=== PATIENT | female | born 1990 | race Hispanic/Latino ===

== ENCOUNTER 2017-12-17 13:47 | Inpatient (IN) | payer MEDICAID, SELFPAY ==
[~2017-12-17] VITALS: Ht 152.4 cm; Wt 52.2 kg
[2017-12-17 14:26] LABS: APPEARANCE,URINE Clear (CLEAR); BILIRUBIN,URINE Negative (NEGATIVE); COLOR,URINE Yellow (YELLOW); GLUCOSE, URINE (UA) Negative (NEGATIVE); KETONES,URINE Negative (NEGATIVE); LEUKOCYTE ESTERASE ,URINE Moderate (NEGATIVE); NITRATE,URINE Negative (NEGATIVE); OCCULT BLOOD,URINE Negative (NEGATIVE); PH,URINE 6.5 (5.0-8.0); PROTEIN,URINE Negative (NEGATIVE)
[2017-12-17 14:41] LABS: BACTERIA,URINE Few /HPF (None Seen); RBC,URINE None Seen /HPF (0-1)
[2017-12-17] MEDS ORDERED: LACTATED RINGERS 1000ML 1,000 ML IV PRN ×2 (15:38→20:21)
[2017-12-17] MEDS ORDERED: OXYTOCIN-LR 20 UNITS/1000 ML 1,000 ML IV SCH ×2 (15:45→20:30)
[2017-12-17 16:00] LABS: HEMATOCRIT 31.3 % (36-48); MEAN CORPUSCULAR HEMOGLOBIN 26.6 pg (27.0-33.0); MEAN CORPUSCULAR HGB CONC 33.3 g/dL (32.0-36.0); PLATELET COUNT (AUTO) 233 K/uL (130-400); RED BLOOD CELL COUNT(AUTO) 3.91 MIL/uL (4.00-5.50); RED CELL DISTRIBUTION WIDTH 14.7 % (11.0-15.5); WHITE BLOOD COUNT (AUTO) 12.4 K/uL (4.8-10.8)
[2017-12-17] MEDS ORDERED: ROPIVACAINE 0.2%200ML EPIDURAL 200 ML EP SCH (19:30)
[2017-12-17] MEDS ORDERED: LACTATED RINGERS 500 ML 500 ML IV PRN (19:30)
[2017-12-17] MEDS ORDERED: EPHEDRINE SULFATE 50 MG/ML AMPULE IVP PRN (19:30)
[2017-12-17] MEDS ORDERED: PROMETHAZINE HCL 25 MG/ML 1ML AMPULE IM PRN (19:30)
[2017-12-17] MEDS ORDERED: NALOXONE HCL 0.4 MG/1 ML ML IV PRN (19:30)
[2017-12-17] MEDS ORDERED: MEPERIDINE-PF 50 MG/ML SYG IVP PRN (19:30)
[2017-12-17] MEDS: ACETAMINOPHEN 325 MG TAB PO PRN ×2 (19:45→23:24)
[2017-12-17] MEDS ORDERED: TERBUTALINE SULFATE VIAL 1MG/ML SQ SCH ×2 (20:30)
[2017-12-17] MEDS ORDERED: LIDOCAINE HCL 1% 20 ML VIAL INJ SCH (20:30)
[2017-12-17] MEDS ORDERED: AMPICILLIN 2GM+NS 100ML 100 ML IV SCH (23:00)
[2017-12-17] MEDS ORDERED: ACETAMINOPHEN 650 MG SUPPOSITORY RC PRN (23:00)
[2017-12-18] MEDS: AMPICILLIN 1GM+NS 50ML 50 ML IV SCH ×2 (03:27→07:23)
[2017-12-18] MEDS ORDERED: OXYTOCIN 10 USP UNITS/ML 20 UNIT in LACTATED RINGERS 1000ML 1,000 ML IV SCH ×2 (06:30→07:00)
[2017-12-18] MEDS ORDERED: OXYTOCIN-LR 20 UNITS/1000 ML 1,000 ML IV SCH ×3 (06:45→11:15)
[2017-12-18] MEDS ORDERED: OXYTOCIN 10 USP UNITS/ML ONE ×2 (06:49→10:59)
[2017-12-18] MEDS ORDERED: LACTATED RINGERS 1000ML 1,000 ML IV ONE (06:49)
[2017-12-18] MEDS ORDERED: MISOPROSTOL 200 MCG TABLET ONE (10:55)
[2017-12-18] MEDS ORDERED: MEASLES/MUMPS/RUBELLA VACCINE, LIVE 0.5 ML/VIAL SQ PRN (11:15)
[2017-12-18] MEDS ORDERED: BENZOCAINE/LANOLIN/ALOE VERA 60 ML AEROSOL TP PRN (11:15)
[2017-12-18] MEDS ORDERED: LANOLIN 30GM OINTMENT TP PRN (11:15)
[2017-12-18] MEDS ORDERED: ACETAMINOPHEN 325 MG TAB PO PRN (11:15)
[2017-12-18] MEDS ORDERED: DIPH,PERTUSS(ACELL),TET VAC/PF 0.5 ML VIAL IM PRN (11:15)
[2017-12-18] MEDS ORDERED: IBUPROFEN 600 MG TABLET PO PRN (11:15)
[2017-12-18] MEDS ORDERED: WITCH HAZEL 1 PAD TP PRN (11:15)
[2017-12-18 13:45] VITALS: BP 100/57
[2017-12-18 15:21] VITALS: BP 123/74
[2017-12-18 19:12] VITALS: BP 117/68
[2017-12-18] MEDS: DOCUSATE SODIUM 100 MG CAP PO SCH (20:54)
[2017-12-18 23:31] VITALS: BP 107/58
[2017-12-19 03:25] VITALS: BP 104/58
[2017-12-19 06:47] LABS: MEAN CORPUSCULAR HEMOGLOBIN 26.8 pg (27.0-33.0); MEAN CORPUSCULAR HGB CONC 33.2 g/dL (32.0-36.0); MEAN CORPUSCULAR VOLUME 80.6 fL (79-99); PLATELET COUNT (AUTO) 186 K/uL (130-400); RED BLOOD CELL COUNT(AUTO) 3.35 MIL/uL (4.00-5.50); RED CELL DISTRIBUTION WIDTH 14.4 % (11.0-15.5); WHITE BLOOD COUNT (AUTO) 9.8 K/uL (4.8-10.8)
[2017-12-19 07:20] VITALS: BP 107/65
[2017-12-19] MEDS: AMPICILLIN 1GM+NS 50ML 50 ML IV SCH (07:30)
[2017-12-19 08:06] LABS: HEPATITIS Bs ANTIGEN SCREEN P Negative (Negative)
[2017-12-19] MEDS: DOCUSATE SODIUM 100 MG CAP PO SCH (08:49)
[2017-12-19 11:10] VITALS: BP 104/56
== END 2017-12-19 13:35 | disposition home or self-care (01) | DRG 560 ==
LOC: EDH 13:47 → OBSVTOIN 13:48 → LDH 13:48 → WSH 12-18 14:59
PROVIDERS: ADMIT Obstetrics & Gynecology; ATTEND Obstetrics & Gynecology
PROC: 10E0XZZ Delivery of Products of Conception, External Approach (ICD-10-PCS; principal; 2017-12-18)
PROC: 10907ZC Drainage of Amniotic Fluid, Therapeutic from Products of Conception, Via Natural or Artificial Opening (ICD-10-PCS; 2017-12-18)
PROC: 3E0234Z Introduction of Serum, Toxoid and Vaccine into Muscle, Percutaneous Approach (ICD-10-PCS; 2017-12-18)
PROC: 3E0134Z Introduction of Serum, Toxoid and Vaccine into Subcutaneous Tissue, Percutaneous Approach (ICD-10-PCS; 2017-12-18)
DX: O62.2 Other uterine inertia (principal); O24.429 Gestational diabetes mellitus in childbirth, unspecified control; Z23 Encounter for immunization; Z37.0 Single live birth; Z3A.37 37 weeks gestation of pregnancy
CPT/HCPCS: 36415; 81001; 82948; 85027; 86592; 86850; 86900; 86901; 87340; A4351; J0290; J2175; J2550; J2590; J3105; J7120